=== PATIENT | male | born 1975 | race African-American/Black ===

== ENCOUNTER 2021-09-15 00:06 | Emergency (ER) | payer MEDICAID ==
[~2021-09-15] VITALS: Ht 175.3 cm; Wt 100.0 kg
[2021-09-15] MEDS ORDERED: MORPHINE SULFATE 10 MG/ML CPJ IV ONE (01:15)
[2021-09-15] MEDS ORDERED: MORPHINE SULFATE 4 MG/ML CPJ (NOT FOR IM USE) IV PRN (01:15)
[2021-09-15 02:01] LABS: BASOPHILS % 0.4 % (0.0-2.0); EOSINOPHILS % 3.6 % (0.0-5.0); HEMATOCRIT. 41.9 % (42.0-52.0); HEMOGLOBIN. 14.3 g/dL (14.0-18.0); LYMPHOCYTES % 38.1 % (20.0-50.0); MEAN CORPUSCULAR HEMOGLOBIN 32.5 pg (28.0-32.0); MEAN CORPUSCULAR VOLUME 95.4 fL (80.0-94.0); MEAN PLATELET VOLUME 8.7 fl (7.4-10.4); MONOCYTES % 13.4 % (2.0-8.0); NEUTROPHILS % 44.5 % (40.0-76.0); PLATELET 211 x1000/uL (130-400); RED BLOOD CELL COUNT 4.39 mill/uL (4.7-6.1); RED CELL DISTRIBUTION WIDTH 13.5 % (11.6-14.6)
[2021-09-15 02:04] LABS: CHLORIDE 110 mEq/L (98-107)
[2021-09-15 02:39] LABS: CLARITY URINE CLEAR (CLEAR); COLOR URINE YELLOW (YELLOW); KETONES URINE TRACE (NEGATIVE); LEUKOCYTE ESTERASE URINE 1+ (NEGATIVE); NITRITE URINE NEGATIVE (NEGATIVE); OCCULT BLOOD URINE NEGATIVE (NEGATIVE); PH URINE 5.5 (4.5-8.0); PROTEIN URINE NEGATIVE (NEGATIVE); SPECIFIC GRAVITY URINE 1.029 (1.005-1.030)
[2021-09-15] MEDS ORDERED: OXYC10TA48 MT ×2 (04:27→04:55)
[2021-09-15] MEDS ORDERED: OXYC-662 MT (04:30)
[2021-09-15 05:50] VITALS: BP 144/96
== END 2021-09-15 05:54 | disposition home or self-care (01) ==
LOC: ER 00:06
DX: K40.90 Unilateral inguinal hernia, without obstruction or gangrene, not specified as recurrent (principal); I10 Essential (primary) hypertension; Z88.0 Allergy status to penicillin
CPT/HCPCS: 36415; 74176; 76870; 80048; 80076; 81003; 83690; 84484; 85025; 93976; 96374; 99285; J2270

== ENCOUNTER 2023-07-04 19:07 | Emergency (ER) | payer MEDICAID ==
[~2023-07-04] VITALS: Ht 172.7 cm; Wt 90.0 kg
[2023-07-04 19:10] VITALS: TEMP 98.7; O2SAT 100
[2023-07-04] MEDS ORDERED: IBUPROFEN 600MG TABLET PO STA (19:11)
[2023-07-04] MEDS ORDERED: IBUPROFEN 600MG TABLET PO NR (21:00)
[2023-07-04] MEDS ORDERED: IBUP-2029 MT (21:05)
[2023-07-04 21:14] VITALS: BP 146/82; PULSE 100; RESP 18
== END 2023-07-04 23:08 | disposition home or self-care (01) ==
LOC: ER 19:07
DX: K40.90 Unilateral inguinal hernia, without obstruction or gangrene, not specified as recurrent (principal); I10 Essential (primary) hypertension; Z85.9 Personal history of malignant neoplasm, unspecified; N40.0 Benign prostatic hyperplasia without lower urinary tract symptoms; Z88.0 Allergy status to penicillin
CPT/HCPCS: 74176; 99284

== ENCOUNTER 2023-12-04 00:11 | Emergency (ER) | payer MEDICAID ==
[~2023-12-04] VITALS: Ht 177.8 cm; Wt 114.0 kg
[~2023-12-04 00:11] MED LIST: IBUP-2029 MT
[2023-12-04 00:17] VITALS: TEMP 98.7; O2SAT 96
[2023-12-04] MEDS ORDERED: TOPUD MT (01:16)
[2023-12-04] MEDS ORDERED: LIDO700A15 TP (01:16)
[2023-12-04] MEDS: KETOROLAC 30MG/ML VIAL IM ONE (02:00)
[2023-12-04 02:08] VITALS: BP 160/78; PULSE 82; RESP 18
== END 2023-12-04 02:54 | disposition home or self-care (01) ==
LOC: ER 00:11
DX: G89.29 Other chronic pain (principal); M25.511 Pain in right shoulder; I10 Essential (primary) hypertension; Z98.890 Other specified postprocedural states
CPT/HCPCS: 99283; 73030; 96372; J1885; A4565

== ENCOUNTER 2023-12-09 21:23 | Emergency (ER) | payer MEDICAID ==
[~2023-12-09] VITALS: Ht 175.3 cm; Wt 87.0 kg
[~2023-12-09 21:23] MED LIST changes: +LIDO700A15 TP; +TOPUD MT
[2023-12-09 21:29] VITALS: TEMP 98.2; O2SAT 99
[2023-12-09] MEDS: MORPHINE SULFATE 4 MG/ML CPJ (NOT FOR IM USE) IV ONE ×3 (22:17→23:40)
[2023-12-09] MEDS: ASPIRIN 325MG TABLET PO ONE (22:17)
[2023-12-09 22:21] LABS: BASOPHILS % 1.2 % (0.0-2.0); EOSINOPHILS % 1.2 % (0.0-5.0); HEMATOCRIT. 48.9 % (42.0-52.0); HEMOGLOBIN. 16.6 g/dL (14.0-18.0); MEAN CORPUSCULAR HGB CONC 33.8 g/dL (31.0-37.0); MEAN CORPUSCULAR VOLUME 94.6 fL (80.0-94.0); NEUTROPHILS % 41.6 % (40.0-76.0); PLATELET 188 x1000/uL (130-400); RED BLOOD CELL COUNT 5.17 mill/uL (4.7-6.1); RED CELL DISTRIBUTION WIDTH 14.8 % (11.6-14.6); WHITE BLOOD COUNT 5.5 x1000/uL (4.5-11.0)
[2023-12-09 22:40] LABS: ALANINE AMINOTRANSFERASE 17 IU/L (10-49); ALBUMIN 4.3 g/dL (3.2-4.8); ASPARTATE AMINOTRANSFERASE 20 IU/L (<34); CALCIUM 9.5 mg/dL (8.7-10.4); CARBON DIOXIDE 25 mEq/L (21-32); CHLORIDE 110 mEq/L (98-107); CREATININE 1.1 mg/dL (0.6-1.3); GLUCOSE 83 mg/dL (70-105); PROTEIN TOTAL 7.4 g/dL (6.0-8.3); SODIUM 141 mEq/L (136-145); TROPONIN I HIGH SENSITIVITY 52 ng/L (3.0-53); UREA NITROGEN BLOOD 13 mg/dL (9-23)
[2023-12-10] MEDS ORDERED: HYDRALAZINE 20MG/ML VIAL IV ONE (00:30)
[2023-12-10] MEDS: NITROGLYCERIN OINT 1GM/INCH UDPKT TD ONE (01:51)
[2023-12-10] MEDS ORDERED: MORPHINE SULFATE 4 MG/ML CPJ (NOT FOR IM USE) IV ONE (02:00)
[2023-12-10] MEDS ORDERED: MORPHINE SULFATE 4 MG/ML CPJ (NOT FOR IM USE) IV NR (04:30)
[2023-12-10 04:34] VITALS: BP 148/100; PULSE 78; RESP 14
[2023-12-10] MEDS: MORPHINE SULFATE 4 MG/ML CPJ (NOT FOR IM USE) IV NR (08:08)
== END 2023-12-10 04:56 | disposition short-term general hospital (02) ==
LOC: ER 21:23
DX: R07.89 Other chest pain (principal); I10 Essential (primary) hypertension; Z98.890 Other specified postprocedural states; Z88.0 Allergy status to penicillin
CPT/HCPCS: 99285; 96374; 71045; 80053; 83880; 85025; 84484; 36415; 93005; 96376 ×2; J2270 ×2